=== PATIENT | male | born 1985 | race Caucasian/White ===

== ENCOUNTER 2020-04-12 12:52 | Emergency (ER) | payer OTHER, SELFPAY ==
[2020-04-12 13:07] VITALS: BP 133/81; PULSE 104; RESP 14; TEMP 37.1; O2SAT 98; BMI 28.7
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
[2020-04-12] MEDS: ACETAMINOPHEN 325 MG TABLET 975 MG PO (15:40)
--- NOTE | 2020-04-12 15:44 | PC.NURSE ---
Pt walking around department with steady gait, moving head and neck independently. denies cervical tenderness, only complaining of pain on right upper chest under collarbone. no deformity and full ROM and +CSM. Cervical collar not applied due to pt moving head and neck independently pain free. advised he needs to stay in his room. asking to go sit with his fiance in room 13. ok'd by provider. attempted to give tylenol and pt declined.
[2020-04-12 16:49] VITALS: BP 134/93; PULSE 103; RESP 18; O2SAT 99
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
== END 2020-04-12 17:00 | disposition home or self-care (01) ==
PROVIDERS: Emergency Provider Nurse Practitioner Family; Family Provider Family Medicine; PCP Family Medicine
DX: S06.0X0A Concussion without loss of consciousness, initial encounter (principal); S16.1XXA Strain of muscle, fascia and tendon at neck level, initial encounter; V89.2XXA Person injured in unspecified motor-vehicle accident, traffic, initial encounter
CPT/HCPCS: 70450; 72125; 99283; 99284